=== PATIENT | male | born 1980 | race Caucasian/White ===

== ENCOUNTER 2024-09-28 18:04 | Emergency (ER) | payer BC ==
[2024-09-28] MEDS ORDERED: guaiFENesin/Dextromethorphan 100-10 MG/5 ML Soln 10 ML Cup PO PRN (19:43)
[2024-09-28] MEDS: Meclizine 25 MG Tab PO ONE (20:10)
[2024-09-28] MEDS: cefTRIAXone 1 GM Vial IM ONE (21:25)
[2024-09-28] MEDS: Lidocaine 1% PF 2 ML SDV INJECT ONE (21:25)
== END 2024-09-28 21:43 | disposition home or self-care (01) ==
LOC: MW.ED 18:04
DX: J18.9 Pneumonia, unspecified organism (principal); I10 Essential (primary) hypertension; F17.200 Nicotine dependence, unspecified, uncomplicated; Z79.899 Other long term (current) drug therapy
CPT/HCPCS: 71045; 87428; 96372; 99285; A9270; J0696; J2003; 99283